=== PATIENT | female | born 1965 | race African-American/Black ===

== ENCOUNTER 2017-02-13 21:59 | Emergency (ER) | payer BC ==
[2017-02-13 22:32] LABS: #Basophils 0.1 thou/uL (0.0-0.2); #Eosinphils 0.1 thou/uL (0.0-0.7); #Lymphocytes 3.6 thou/uL (1.20-3.40); #Monocytes 0.7 thou/uL (0.11-0.59); #Neutrophils 3.6 thou/uL (1.40-6.50); %Basophils 1.1 % (0.0-1.0); %Eosinophils 0.9 % (0.0-10.0); %Lymphocytes 44.3 % (21.0-51.0); %Monocytes 8.5 % (0.0-10.0); Hematocrit 43.5 % (36.0-47.0); Mean Platelet Volume 7.9 fL (7.4-10.4); Red Blood Cell (RBC) Count 4.52 mill/uL (4.20-5.40); White Blood Cell (WBC) Count 8.1 thou/uL (4.8-10.8)
[2017-02-13 22:33] LABS: Bilirubin Negative (Negative); Blood, Urine Trace (Negative); Glucose, Urine (Dipstick) Negative (Negative); Ketone, Urine Negative (Negative); Nitrite Negative (Negative); Protein, Urine (Dipstick) Negative (Neg-Trace); Urobilinogen 0.2 mg/dL (0.2-1.0)
--- NOTE | 2017-02-13 22:41 | RAD ---
PA AND LATERAL OF THE CHEST: 02/13/17 INDICATION: Chest pain. COMPARISON: Prior exam dated 09/02/11. FINDINGS: The lungs are clear. Cardiomediastinal silhouette is normal. No acute osseous abnormality is evident . IMPRESSION: No acute cardiopulmonary abnormality. POS: [facility]
[2017-02-13 22:58] LABS: ALT (SGPT) 16 U/L (8-55); AST (SGOT) 20 U/L (5-34); Alkaline Phosphatase 126 U/L (40-150); Anion Gap 16 mmol/L (10-20); BUN (Urea Nitrogen) 15 mg/dL (9.8-20.1); Bilirubin, Total 0.2 mg/dL (0.2-1.2); CK (CPK) 110 U/L (29-168); Calc. Creatinine Clearance 0 mL/min (70-130); Calcium 9.8 mg/dL (7.8-10.44); Carbon Dioxide 25 mmol/L (22-29); Chloride 102 mmol/L (98-107); Estimated GFR-MDRD 74; Globulin 3.7 g/dL (2.4-3.5); Lipase 22 U/L (8-78); Protein, Total 7.9 g/dL (6.0-8.3)
[2017-02-13 23:00] LABS: Troponin I Less than 0.010 ng/mL (< 0.028)
[2017-02-13 23:20] LABS: Bacteria/HPF None Seen HPF (None Seen); Hyaline Casts/LPF NONE SEEN LPF (0-3 Hyaline); RBC/HPF 0-3 HPF (0-3); Squamous Epithelial 0-3 HPF (0-3); WBC/HPF None Seen HPF (0-3)
[2017-02-13] MEDS ORDERED: Mag-Al 1200 mg/1200 mg/30 ML UDCUP ONE (23:24)
[2017-02-13] MEDS ORDERED: Lidocaine Viscous Sol 2% 15 ml UD Cup ONE (23:25)
== END 2017-02-13 23:44 | disposition home or self-care (01) ==
LOC: ERS 21:59
DX: R07.9 Chest pain, unspecified (principal); E78.5 Hyperlipidemia, unspecified; Z79.899 Other long term (current) drug therapy
CPT/HCPCS: 71020; 80053; 81003; 81015; 82550; 82553; 83690; 84484; 85025; 93005

== ENCOUNTER 2017-09-09 08:01 | Outpatient (CLI) | payer OTHER | END 2017-09-09 08:02 | disposition home or self-care (01) | LOC: BICMAMMO 08:01 | PROVIDERS: ATTEND Family Medicine | DX: Z12.31 Encounter for screening mammogram for malignant neoplasm of breast (principal) | CPT/HCPCS: 77063; 77067 ==

== ENCOUNTER 2017-09-29 13:49 | Outpatient (CLI) | payer OTHER ==
--- NOTE | 2017-09-29 15:55 | RAD ---
2 VIEWS OF ABDOMEN AND UPRIGHT VIEW OF CHEST: Date: 09/29/17 COMPARISON: None. HISTORY: Abdominal pain with nausea for the past 4 hours that is intermittent. FINDINGS: Supine and upright views of the abdomen and upright view of the chest shows a nonspecific, nonobstruc lynda bowel gas pattern. No suspicious calcifications are seen. There appear to be surgical clips in th e pelvis. The cardiomediastinal silhouette is normal in size. There is no evidence of consolidation, mass, or p leural effusion. IMPRESSION: No evidence of acute cardiopulmonary disease. POS: [facility]
[2017-10-01 20:11] LABS: H. pylori IgA ABS 25.2 units (0.0-8.9); H. pylori IgG ABS 0.34 (0.00-0.79); H. pylori IgM ABS Less than 9.0 units (0.0-8.9)
== END 2017-09-29 13:50 | disposition home or self-care (01) ==
LOC: SCSRAD 13:49
PROVIDERS: ATTEND Nurse Practitioner Family
DX: R10.9 Unspecified abdominal pain (principal)
CPT/HCPCS: 36415; 74022

== ENCOUNTER 2018-09-13 08:05 | Outpatient (CLI) | payer OTHER ==
--- NOTE | 2018-09-13 08:47 | MMO ---
Bilateral MAMMO Bilat Screen [facility]. CLINICAL HISTORY: Patient is 53 years old and is seen for screening. The patient has no family history of breast cancer. The patient has no personal history of cancer. The patient has a history of right Excisional Biopsy - benign - x3. VIEWS: The views performed were: bilateral craniocaudal with tomosynthesis and bilateral mediolateral oblique with tomosynthesis. FILMS COMPARED: The present examination has been compared to prior imaging studies performed at [facility] on 09/09/2017, at [facility] on 09/08/2016, and at [facility] on 04/12/2014 and 08/14/2015. MAMMOGRAM FINDINGS: There are scattered fibroglandular densities. There are no suspicious masses, suspicious calcifications, or new areas of architectural distortion. IMPRESSION: THERE IS NO MAMMOGRAPHIC EVIDENCE OF MALIGNANCY. A ROUTINE FOLLOW-UP MAMMOGRAM IN 1 YEAR IS RECOMMENDED. THE RESULTS OF THIS EXAM WERE SENT TO THE PATIENT. ACR BI-RADS Category 1 - Negative MAMMOGRAPHY NOTE: 1. A negative mammogram report should not delay a biopsy if a dominant of clinically suspicious mass is present. 2. Approximately 10% to 15% of breast cancers are not detected by mammography. 3. Adenosis and dense breasts may obscure an underlying neoplasm.
== END 2018-09-13 08:06 | disposition home or self-care (01) ==
LOC: BICMAMMO 08:05
PROVIDERS: ATTEND Family Medicine
DX: Z12.31 Encounter for screening mammogram for malignant neoplasm of breast (principal)
CPT/HCPCS: 77063; 77067

== ENCOUNTER 2018-12-14 14:24 | Outpatient (CLI) | payer OTHER ==
--- NOTE | 2018-12-14 15:10 | RAD ---
EXAM: ABDOMEN TWO VIEWS CHEST ONE VIEW: 12/14/18 HISTORY: Constipation. Fullness and pressure in mid abdomen. COMPARISON: 09/29/17. FINDINGS: No significant acute process in the chest. No free intraperitoneal air. Minimal scattered gas and fec al material in the colon. No large or small bowel obstruction. No overt calculus. IMPRESSION: Unremarkable chest one view, abdomen two views. POS: [facility]
== END 2018-12-14 14:25 | disposition home or self-care (01) ==
LOC: SCSRAD 14:24
PROVIDERS: ATTEND Nurse Practitioner Family
DX: K59.00 Constipation, unspecified (principal)
CPT/HCPCS: 74022

== ENCOUNTER 2019-09-13 07:04 | Outpatient (CLI) | payer OTHER ==
--- NOTE | 2019-09-13 08:15 | ULT ---
ABDOMINAL ULTRASOUND COMPLETE: HISTORY: Abdominal pain. COMPARISON: 08/28/2010. FINDINGS: Liver echogenicity is unremarkable. The gallbladder demonstrates o evidence of gallstones, wall thic kness, edema, or pericholecystic fluid. Common bile duct is 0.4 cm. Visualized pancreas, IV, aorta, and spleen are unremarkable. The kidneys show no evidence of renal hydronephrosis. IMPRESSION: Normal abdominal ultrasound. Stable from prior study. POS: [facility]
== END 2019-09-13 07:05 | disposition home or self-care (01) ==
LOC: BICULT 07:04
PROVIDERS: ATTEND Internal Medicine Gastroenterology
DX: R10.10 Upper abdominal pain, unspecified (principal); R76.8 Other specified abnormal immunological findings in serum; J30.89 Other allergic rhinitis
CPT/HCPCS: 93975

== ENCOUNTER 2020-02-06 09:29 | Outpatient (CLI) | payer OTHER ==
--- NOTE | 2020-02-06 10:36 | CT ---
CT ABDOMEN AND PELVIS WITH IV CONTRAST 02/06/2020 CLINICAL INFORMATION: Suprapubic pain and chronic constipation. COMPARISON: None. Technique: Multiple contiguous axial CT images are obtained through the abdomen and pelvis with IV contrast. Cor onal reformatted images are provided. FINDINGS: Lower Chest: There is mild herniation of fat at the posteromedial right lung base. A 9 mm groundglass nodule is seen in the left lower lobe. Follow-up CT thorax in 6 months is recommended. Vessels: Abdominal aorta is normal in caliber. Abdomen: Portal vein:Patent Gallbladder: Within normal limits for CT imaging. Liver: within normal limits. Spleen: within normal limits. Pancreas: within normal limits. Adrenals: within normal limits. Kidneys: Subcentimeter too small to characterize hypodense lesion midportion left kidney. Kidneys oth erwise have a normal CT appearance bilaterally. Bowel: Normal caliber. Appendix: The appendix is visualized and normal in caliber. Peritoneum: No ascites or free air; no fluid collection. Mesentery and Retroperitoneum: No enlarged mesenteric or retroperitoneal lymph nodes. Abdominal Wall: Injection granulomata are seen in each gluteal region. Tiny fat-containing umbilical hernia is present. Pelvis: Reproductive Organs: Evidence of hysterectomy. Bladder: Area of increased density is seen in the posterior aspect of the urinary bladder which has t he appearance of artifact. Urinary bladder otherwise has a normal CT appearance. Bones: No suspicious lytic or sclerotic osseous lesions. IMPRESSION: 1. Approximately 9 mm groundglass pulmonary nodule left lower lobe. Follow-up CT thorax in 6 months i s recommended. 2. No acute findings in the abdomen or pelvis. 3. Above findings discussed with the ELVIS Salgado on 02/06/2020 at 1029 hours.
[2020-02-06] MEDS ORDERED: Iopamidol-370 76% 500 ML 1 ML ONE (14:57)
== END 2020-02-06 09:30 | disposition home or self-care (01) ==
LOC: BICCT 09:29
PROVIDERS: ATTEND Physician Assistant Medical
DX: R10.33 Periumbilical pain (principal); K59.09 Other constipation; R91.1 Solitary pulmonary nodule
CPT/HCPCS: 74177; Q9967

== ENCOUNTER 2020-09-12 12:16 | Outpatient (CLI) | payer BC | END 2020-09-12 12:17 | disposition home or self-care (01) | LOC: BICRAD 12:16 | PROVIDERS: ATTEND Internal Medicine Rheumatology | DX: M46.1 Sacroiliitis, not elsewhere classified (principal) | CPT/HCPCS: 72202 ==

== ENCOUNTER 2021-03-12 10:58 | Outpatient (CLI) | payer OTHER | END 2021-03-12 10:59 | disposition home or self-care (01) | LOC: BICCT 10:58 | PROVIDERS: ATTEND Internal Medicine Critical Care Medicine | DX: R91.1 Solitary pulmonary nodule (principal) | CPT/HCPCS: 71250 ==

== ENCOUNTER 2023-03-02 06:57 | Outpatient (CLI) | payer BC | END 2023-03-02 06:58 | disposition home or self-care (01) | LOC: BICULT 06:57 | PROVIDERS: ATTEND Internal Medicine Gastroenterology | DX: K21.9 Gastro-esophageal reflux disease without esophagitis (principal); R10.13 Epigastric pain; K59.09 Other constipation | CPT/HCPCS: 76700 ==